=== PATIENT | male | born 1965 | race Caucasian/White ===

== ENCOUNTER 2022-01-10 14:09 | Observation (INO) | payer MEDICARE, OTHER ==
[~2022-01-10] VITALS: Ht 185.4 cm; Wt 111.1 kg
[~2022-01-10 14:09] MED LIST: BYSTOLIC20 MG PO; FIORICET TAB1 EA PO; HYDRALAZINE HC100 MG PO
[2022-01-10 14:47] LABS: HEMOGLOBIN 13.9 gm/dl (14.0-17.5); RED BLOOD COUNT 4.73 M/UL (4.20-5.50); WHITE BLOOD COUNT 5.6 K/UL (4.5-11.0)
[2022-01-10 15:12] LABS: BUN/CREATININE RATIO 14 (0-10)
[2022-01-10] MEDS ORDERED: FLOMAX 0.4 MG0.4 MG PO (18:00)
[2022-01-10] MEDS ORDERED: FINASTERIDE5 MG PO (18:00)
[2022-01-10] MEDS ORDERED: ZETIA10 MG PO (18:01)
[2022-01-10] MEDS ORDERED: AMLODIPINE BESY10 MG PO (18:01)
[2022-01-10] MEDS ORDERED: NOVOLOG FL100 UNIT/1 INJ (18:01)
[2022-01-10] MEDS ORDERED: LANTUS SOL100 UNIT/1 SQ (18:02)
[2022-01-10] MEDS ORDERED: ALLOPURINOL100 MG PO (18:02)
[2022-01-10] MEDS ORDERED: LOSARTAN POTAS100 MG PO (18:03)
[2022-01-10] MEDS ORDERED: OMEPRAZOLE40 MG PO (18:03)
[2022-01-10] MEDS ORDERED: LATANOPROST2.5 ML OD (18:03)
[2022-01-10] MEDS ORDERED: SYSTANE 0.3-0.415 ML OU (18:04)
[2022-01-10] MEDS ORDERED: CELECOXIB200 MG PO (18:04)
--- NOTE | 2022-01-10 23:26 | NUR ---
PT DEMANDED EYE OINTMENT AND DRY EYE DROPS. STATED " IF YOU DON'T GET ME SOME I'LL LEAVE AND WALK TO [facility], I'VE BEEN TELLING YOU SINCE I GOT HERE TODAY I NEED THESE". PROVIDER CONTACTED AND NEW ORDERDS NOTED
[2022-01-11 06:48] LABS: BUN/CREATININE RATIO 15 (0-10)
--- NOTE | 2022-01-11 09:35 | NUR ---
0935- PT IS UPSET ASKING TO LEAVE BECAUSE NO NPO ORDERS WERE PUT IN FOR HIM LAST NIGHT AND HE ATE BREAKFAST THIS MORNING. CARDIOLOGY HAD PLANNED TO DO A STRESS TEST. PT WAS TOLD HE WOULD BE NPO TONIGHT AND STRESS TEST TOMORROW. PT REFUSED AND WANTS TO GO HOME. I NOTIFIED CARDIOLOGY AND DR. YIN. DR YIN STATED HE WOULD COME TO FLOOR TO SEE PT AND PUT DISCHARGE ORDERS IN.
== END 2022-01-11 10:41 | disposition left against medical advice (07) ==
LOC: ER1 14:09 → CDU 16:17 → M/S 16:17
PROVIDERS: Emergency Medicine; ADMIT Internal Medicine Infectious Disease
DX: R07.89 Other chest pain (principal); Z20.822 Contact with and (suspected) exposure to COVID-19; Z53.29 Procedure and treatment not carried out because of patient's decision for other reasons; I10 Essential (primary) hypertension; E87.6 Hypokalemia; E11.39 Type 2 diabetes mellitus with other diabetic ophthalmic complication; H40.9 Unspecified glaucoma; H42 Glaucoma in diseases classified elsewhere; Z79.4 Long term (current) use of insulin; Z79.899 Other long term (current) drug therapy
CPT/HCPCS: 36415; 71045; 80048; 80053; 80061; 82550; 82553; 83036; 83735; 83880; 84484; 85025; 85379; 85610; 85730; 93005; 99285; G0378; U0002